=== PATIENT | male | born 1995 | race Two or more races ===

== ENCOUNTER 2022-05-19 21:42 | Emergency (ER) | payer SELFPAY ==
[~2022-05-19] VITALS: Ht 177.8 cm; Wt 79.4 kg
[2022-05-19 22:39] VITALS: BP 127/75
[2022-05-19] MEDS ORDERED: CELLULOSE,OXIDIZED 1 PKT EACH MC ONE (23:30)
[2022-05-20] MEDS ORDERED: TDAP [DIPH/PERTUSSIS/TET] 0.5 ML VIAL IM ONE ×2 (00:10→00:30)
--- NOTE | 2022-05-20 00:13 | NUR ---
Patient discharged to home in stable condition. Written and verbal after care instructions given. Patient verbalizes understanding of instruction. pt ambulatory with a steady gait
[2022-05-20] MEDS ORDERED: GELATIN SPONGE,ABSORBABLE 1 SPONGE SPONGE TP ONE (00:30)
== END 2022-05-20 00:16 | disposition home or self-care (01) ==
LOC: ER 21:45
DX: S61.212A Laceration without foreign body of right middle finger without damage to nail, initial encounter (principal); W26.8XXA Contact with other sharp object(s), not elsewhere classified, initial encounter; Y93.89 Activity, other specified; Y92.511 Restaurant or cafe as the place of occurrence of the external cause; Y99.8 Other external cause status
CPT/HCPCS: 90715